=== PATIENT | female | born 1975 ===

== ENCOUNTER 2023-04-01 21:41 | Emergency (ER) | payer SELFPAY ==
[2023-04-01 21:47] VITALS: BP 154/79; PULSE 87; RESP 17; TEMP 36.9; O2SAT 100; BMI 35.3
--- NOTE | 2023-04-01 23:17 | XRR_ITS ---
PROCEDURE INFORMATION: Exam: XR Chest Exam date and time: 04/01/2023 11:21 PM Age: 47 years old Clinical indication: Pain; Chest pressure; Additional info: Cough TECHNIQUE: Imaging protocol: Radiologic exam of the chest. Views: 1 view. COMPARISON: No relevant prior studies available. FINDINGS: Lungs: Unremarkable. No consolidation. Pleural spaces: Unremarkable. No pleural effusion. No pneumothorax. Heart/Mediastinum: Unremarkable. No cardiomegaly. Bones/joints: Unremarkable. XR/XR chest 1V portable [id number] IMPRESSION: No acute findings.
--- NOTE | 2023-04-01 23:18 | ED_ITS ---
HPI - COVID General: Chief Complaint: COVID symptoms Stated Complaint: chest pain, sore throat, runny nose, back pain Time Seen by Provider: 04/01/23 23:14 History of Present Illness: Patient presents to the ER with complaining of fever chills body aches sore throat since Saturday. Patient went to work today and her fever was 100.2 so she presented to the ER for further work-up. Patient also complains of some left flank pain and burning when she urinates. COVID Results: SARS-CoV-2 Antigen (Rapid) positive (Negative) H 04/01/23 23:4 4 Review of Systems General: Reports: 10 or more systems reviewed and unremarkable except in HPI and below Physical Exam Const: COMMON NORMALS: no acute distress, average body habitus, patient oriented x3, no limitations, healthy appearing, alert and well nourished HENMT: COMMON NORMALS: normocephalic, atraumatic, hearing grossly normal bilaterally, external ears normal, Normal external nose present and moist oral mucous membranes HEAD & SCALP: normocephalic and atraumatic NOSE: Normal external nose present EXTERNAL EAR: Yes external ears normal Eye: COMMON NORMALS: Equal, round and reactive pupils present, EOMs intact bilaterally, conjunctivae normal and no scleral icterus CONJUNCTIVA: Yes conjunctivae normal PUPIL: Yes Equal, round and reactive pupils present Neck/C-Spine: COMMON NORMALS: full ROM, no lymphadenopathy, supple, no meningeal signs, no JVD and Thyroid normal THYROID: Thyroid normal Chest: COMMONS NORMALS: normal inspection of the chest and normal palpation of entire chest wall Resp: COMMON NORMALS: normal respiratory effort, No retractions, No use of accessory muscles and clear to auscultation bilaterally AUSCULTATION: clear to auscultation bilaterally Cardio: COMMON NORMALS: no JVD, regular rate, regular rhythm, S1 normal heart sound present, S2 normal heart sound present, No gallops present (Cardio), No clicks present (Cardio) and No murmurs present (Cardio) RATE: regular rate RHYTHM: regular rhythm HEART SOUNDS: S1 normal heart sound present and S2 normal heart sound present GI: COMMON NORMALS: Normal to inspection, nondistended, normoactive bowel sounds present, Soft to palpation, non-tender, No hepatosplenomegaly present and no masses PALPATION: Yes Soft to palpation and Yes No hepatosplenomegaly present : COMMON NORMALS: Yes no CVA tenderness BLADDER/KIDNEY EXAM: Yes no CVA tenderness Back/Pelvis: COMMON NORMALS: no CVA tenderness Neuro: COMMON NORMALS: patient oriented x3 SENSORIUM/ORIENTATION: Yes alert MENINGEAL SIGNS: Yes no meningeal signs Course Vital Signs: Vital signs: Vital Signs Temperature 98.4 F 04/01/23 21:47 Pulse Rate 87 04/01/23 21:47 Respiratory Rate 17 04/01/23 21:47 Blood Pressure 154/79 04/01/23 21:47 Pulse Oximetry 100 04/01/23 23:47 Oxygen Delivery Me thod Room Air 04/01/23 23:47 MDM - COVID Medical Decision Making Patient presents to the ER for shortness of breath and cough and is not feeling good with overall body aches. Lab work was obtained which showed patient is COVID-positive. Patient be discharged home to follow-up with her PCP for further evaluation and treatment as needed. Differential Diagnosis Likely COVID 19, influenza and pneumonia; Unlikely other viral infection, bacterial infection, copd exacerbation, pulmonary embolism, NSTEMI/STEMI, CHF exacerbation, stroke, overdose/intoxication or other Medical Records I reviewed the patient's medical records. Lab Data I reviewed the patient's lab results. Radiology Impressions Chest X-Ray 04/01/23 23:17 IMPRESSION: No acute findings. Laboratory Results Urine Color Yellow (Yellow) 04/02/23 00:20 Urine Appearance Clear (CLEAR) 04/02/23 00:20 Urine pH 5 (5-7) 04/02/23 00:20 Ur Specific Willis 1.020 (1.005-1.030) 04/02/23 00:20 Urine Protein Neg (Negative) 04/02/23 00:20 Urine Glucose (UA) Norm (Normal) 04/02/23 00:20 Urine Ketones Negative (Negative) 04/02/23 00:20 Urine Blood Trace (Negative) H 04/02/23 00:20 Urine Nitrate Negative (Negative) 04/02/23 00:20 Urine Bilirubin Neg (Negative) 04/02/23 00:20 Urine Urobilinogen Neg mg/dL (Negative) 04/02/23 00:20 Ur Leukocyte Esterase Negative (Negative) 04/02/23 00:20 Urine RBC 5-10 /hpf (0-2) H 04/02/23 00:20 Urine WBC None /hpf (0-5) 04/02/23 00:20 Ur Squamous Epith Cells 0-4 /hpf (0-5) H 04/02/23 00:20 Amorphous Sediment Not Reportable 04/02/23 00:20 Urine Bacteria Trace /hpf (NONE) 04/02/23 00:20 Influenza Type A Ag negative (Negative) 04/01/23 23:44 Influenza Type B Ag negative (Negative) 04/01/23 23:44 SARS-CoV-2 Ag (Rapid) positive (Negative) H 04/01/23 23:44 SARS-CoV-2 Antigen (Rapid) positive (Negative) H 04/01/23 23:4 4 All radiology interpretation(s) finalized by discharge Discharge Plan Discharge Patient Disposition: Home Clinical Impression: COVID Condition: Stable Discharge Orders: Discharge ED (Routine); Ordered 04/02/23 Ordered By: Boy Modi Patient Instructions: COVID-19 (Coronavirus Disease 2019) (ED) Activity Restrictions/Additional Instructions: Please follow-up with your family practice doctor in the next 7 to 10 days or sooner as needed for further evaluation and treatment. Coding Level of Care Code ED [employer] for Portia Werner
[2023-04-01 23:47] VITALS: O2SAT 100
[2023-04-02 00:10] LABS: Influenza A by IFA negative (Negative); Influenza B by IFA negative (Negative)
[2023-04-02 00:17] LABS: SARS Covid-2 Antigen positive (Negative)
[2023-04-02 00:49] LABS: Add Urine Microscopic? YES; Bilirubin Urine Neg (Negative); Blood Urine Trace (Negative); Glucose Urine UA Norm (Normal); Ketones Urine Negative (Negative); Leukocyte Esterase Urine Negative (Negative); Nitrate Urine Negative (Negative); Protein Urine Neg (Negative); Urine Appearance Clear (CLEAR); Urine Color Yellow (Yellow); Urobilinogen Urine Neg (Negative); pH Urine 5 (5-7)
[2023-04-02 00:50] LABS: Add Urine Culture? No; Bacteria Urine TRACE /hpf; Squamous Epithelial Cell Urine 0-4 /hpf (0-5)
[2023-04-02 01:03] VITALS: PULSE 85; RESP 18; O2SAT 100
== END 2023-04-02 01:02 | disposition home or self-care (01) ==
PROVIDERS: Nurse Practitioner Family; Emergency Provider Emergency Medicine
DX: U07.1 COVID-19 (principal); Z20.822 Contact with and (suspected) exposure to COVID-19
CPT/HCPCS: 71045; 81001; 87426; 87804; 99284